=== PATIENT | female | born 1995 | race African-American/Black ===

== ENCOUNTER 2018-10-29 20:43 | Emergency (ER) | payer MEDICAID ==
[~2018-10-29] VITALS: Ht 160 cm; Wt 82.0 kg
[2018-10-29] MEDS ORDERED: ACETAMINOPHEN 500MG TABLET PO ONE (21:30)
[2018-10-29] MEDS ORDERED: KETOROLAC 60MG/2ML VIAL IM ONE (22:30)
[2018-10-29 23:15] VITALS: BP 123/78
== END 2018-10-29 23:16 | disposition home or self-care (01) ==
LOC: ER 20:43
DX: S09.8XXA Other specified injuries of head, initial encounter (principal); V43.62XA Car passenger injured in collision with other type car in traffic accident, initial encounter; Y93.89 Activity, other specified; Y92.410 Unspecified street and highway as the place of occurrence of the external cause
CPT/HCPCS: 70450; 81025; 96372; 99284; J1885